=== PATIENT | female | born 1960 | race Caucasian/White ===

== ENCOUNTER 2018-03-01 07:55 | Emergency (ER) | payer BC ==
--- OUTSIDE RECORDS SUMMARY | 2018-03-01 08:05 | XMS REPORT ---
:1960 External Reference #:[id number] Author Organization [employer] Address [address] [place] [address] [place] [address] Phone [phone] Care Team Providers Name Role Phone Vandana Bynum MD Primary Care Physician Unavailable Payers Type Date Identification Numbers Payment Provider Subscriber Commercial Policy Number: [id number] [employer] Indira Latham PayID: [id number] [address] [address] [place] [address] Problems Date Description Provider Status Onset: 10/29/2011 Benign essential hypertension Cele Li M.D., FACP Active Onset: 06/17/2016 Essential hypertension Vandana Bynum M.D. Active Family History Date Family Member(s) Problem(s) Comments Father Hypertension Father 81 Mother Alive And Well Mother 81 First Daughter 18 First Brother 52 Second Brother 58 Social History Type Date Description Comments Marital Status one daughter age 15 Occupation Teacher fourth grade ETOH Use Drinks 1 Alcoholic Beverage Per Day has cut down Smoking Patient has never smoked Allergies, Adverse Reactions, Alerts Date Description Reaction Status Severity Comments 10/08/2011 NKDA active Medications Medication Date Status Form Strength Qnty SIG Indications Ordering Provider Valsartan 06/17/ Active Tablets 160mg 90tab take 1 I10 2015 s tablet by Cotton, mouth every M.D. day Valsartan 12/26/ Hx Tablets 40mg 270ta 3 by mouth I10 Vandana 2015 - bs every day Cotton, 06/17/ M.D. 2016 Valsartan 11/13/ Hx Tablets 80mg 135ta 1 and 1/ I10 Vandana 2015 - bs by mouth Fletcher, 12/26/ every day M.D. 2015 Amoxicillin/Cl 11/12/ Hx Tablets 875-125mg 20tab one tablet J01.20 Pretty avulanate 2016 - s by mouth Varn, N.P. Potassium 11/22/ twice daily 2016 for 10 days Fluticasone 11/12/ Hx Suspension 50mcg/Act 16uni 2 sprays J01.20 Pretty Propionate 2016 - ts each Varn, N.P. 11/26/ nostril 2016 daily as needed Amoxicillin 11/10/ Hx Capsules 500mg 20cap 1 by mouth 461.0 Charisse 2015 - s twice a day Carlton 04/14/ M.D. 2015 Diovan 09/22/ Hx Tablets 80mg 90tab 1 by mouth I10 Vandana 2014 - s every day Fletcher 11/13/ MXiao. 2015 Centrum Silver 11/17/ Hx Tablets Adult 50 1 po qday Cele Adult 50+ 2013 - Jen 04/14/ M.DIsidro, FACP 2015 Nabumetone 11/17/ Hx Tablets 500mg 60tab 1 by mouth Cele 2013 - s twice a day Jen 09/22/ MLuca, FACP 2015 Robitussin ac 10/15/ Hx Solution 4Oz 1-2 tsp at 465.8 Alma 2011 - bedtime as Rees, 10/24/ needed for M.D. 2011 cough. Azithromycin 10/08/ Hx Tablets 250mg 6tabs two tabs 382.9 [facility] 2011 - day one, Fletcher, 10/15/ one daily M.D. 2011 till gone Robitussin ac 10/08/ Hx 120cc 1 - 2 tsp q 465.9 [facility] 2011 - 4 hrs prn Fletcher 10/15/ cough M.D. 2011 Diovan HCT 09/12/ Hx Tablets 80-12.5mg 90tab Take One Cele 2010 - Tablet By Jen, 11/10/ Mouth Once M.D., FACP 2015 Daily Calcium + D / Hx Tablets 600-200mg 30tab 1 po bid Unknown 0000 - -Unit s 2013 Fish Oil / Hx Capsules 1200mg 1 po qd Unknown 0000 - 2013 Aspir-81 / Hx Tablets DR 81mg 100ta 1 po qd Unknown 0000 - bs 2014 Mucinex DM / Hx Tablets ER 30-600mg 1 tablet by Unknown 0000 - 12HR mouth twice 02/03/ a day as 2017 needed persistent cough Immunizations CPT Code Status Date Vaccine Lot # [id number] Given 05/13/2014 Influenza Virus Vaccine, Quadrivalent, Split, [id number] Preservative Free [id number] Given 05/12/2014 Influenza Virus Vaccine, Quadrivalent, Split, Preservative Free [id number] Given 07/30/2013 Flu Vaccine NOS [id number] Given 10/29/2011 Tdap - Tetanus/Diptheria/Acellular Pertussis 24219 Given 05/25/2009 Influenza Virus 3Yrs & Over Vital Signs Date Vital Result Comment 02/20/2018 Height 65 inches 5'5" Weight 254.00 lb Heart Rate 81 /min BP Systolic Sitting 146 mmHg BP Diastolic Sitting 85 mmHg Body Temperature 99.0 F O2 % BldC Oximetry 97 % BMI (Body Mass Index) 42.3 kg/m2 02/03/2017 Weight 254.50 lb Heart Rate 78 /min BP Systolic 132 mmHg BP Diastolic 80 mmHg Body Temperature 98.6 F O2 % BldC Oximetry 98 % 06/17/2016 Height 65 inches 5'5" Weight 244.00 lb Heart Rate 70 /min BP Systolic Sitting 150 mmHg BP Diastolic Sitting 84 mmHg O2 % BldC Oximetry 98 % BMI (Body Mass Index) 40.6 kg/m2 11/14/2015 Weight 238.00 lb Heart Rate 78 /min BP Systolic Sitting 140 mmHg BP Diastolic Sitting 80 mmHg Respiratory Rate 15 /min Body Temperature 98.6 F O2 % BldC Oximetry 98 % 11/13/2015 Weight 238.50 lb Heart Rate 79 /min BP Systolic Sitting 146 mmHg BP Diastolic Sitting 79 mmHg Body Temperature 98.8 F O2 % BldC Oximetry 98 % 04/14/2015 Height 65 inches 5'5" Weight 238.00 lb Heart Rate 78 /min BP Systolic Sitting 150 mmHg BP Diastolic Sitting 85 mmHg Body Temperature 98.9 F BMI (Body Mass Index) 39.6 kg/m2 11/10/2014 Weight 232.00 lb Heart Rate 71 /min BP Systolic Sitting 128 mmHg BP Diastolic Sitting 72 mmHg Body Temperature 97.8 F O2 % BldC Oximetry 98 % 09/22/2014 Weight 235.00 lb Heart Rate 72 /min BP Systolic Sitting 169 mmHg BP Diastolic Sitting 91 mmHg O2 % BldC Oximetry 98 % 11/17/2013 Weight 223.50 lb Heart Rate 88 /min BP Systolic 152 mmHg BP Diastolic 84 mmHg Respiratory Rate 16 /min Body Temperature 99.2 F 07/03/2012 Height 65 inches 5'5" Weight 211.00 lb Heart Rate 76 /min BP Systolic Sitting 130 mmHg BP Diastolic Sitting 90 mmHg BMI (Body Mass Index) 35.1 kg/m2 11/21/2011 Height 65 inches 5'5" Weight 202.50 lb Heart Rate 64 /min BP Systolic Sitting 158 mmHg BP's at home average 133/80 BP Diastolic Sitting 78 mmHg BP's at home average 133/80 BMI (Body Mass Index) 33.7 kg/m2 10/29/2011 Height 65 inches 5'5" Weight 207.25 lb Heart Rate 64 /min BP Systolic Sitting 136 mmHg 130/80 (repeat) BP Diastolic Sitting 80 mmHg 130/80 (repeat) BMI (Body Mass Index) 34.5 kg/m2 10/15/2011 Height 65 inches 5'5" Weight 206.00 lb Heart Rate 76 /min BP Systolic Sitting 120 mmHg BP Diastolic Sitting 82 mmHg Body Temperature 98.8 F BMI (Body Mass Index) 34.3 kg/m2 10/08/2011 Height 65 inches 5'5" Weight 203.00 lb Heart Rate 78 /min BP Systolic Sitting 138 mmHg BP Diastolic Sitting 72 mmHg Body Temperature 98.6 F BMI (Body Mass Index) 33.8 kg/m2 Results Test Date Test Result H/L Range Note Laboratory test finding 02/20/2018 Cytology <pending> Lipid Profile (Trig/Chol/HDL) 02/16/2018 Triglycerides 95 mg/dL 1 Cholesterol 237 mg/dL 2 HDL Cholesterol 69.1 mg/dL 3 LDL Cholesterol 149 mg/dL 4 Comp Metabolic Panel 02/16/2018 Sodium 141 mmol/L 135-145 Chloride 102 mmol/L 101-111 Co2 Carbon Dioxide 29 mmol/L 22-32 Glucose 111 mg/dL High 70-100 Blood Urea Nitrogen 21 mg/dL 6-24 Creatinine 0.74 mg/dL 0.51-0.95 BUN/Creatinine Ratio 28.4 High 8-20 Calcium 9.9 mg/dL 8.6-10.3 Total Protein 7.0 g/dL 6.4-8.9 Albumin 4.2 g/dL 3.2-5.2 Globulin 2.8 g/dL 2-4 Albumin/Globulin Ratio 1.5 1-3 Total Bilirubin 0.50 mg/dL 0.2-1.0 Alkaline Phosphatase 79 U/L 34-104 Alt 21 U/L 7-52 Ast 16 U/L 13-39 Egfr Non- 80.9 >60 Egfr 97.9 >60 5 Potassium 5.7 mmol/L High 3.5-5.0 Anion Gap 10 mmol/L 2-11 Laboratory test finding 02/16/2018 Hemoglobin A1c (Glyco HGB) 5.9 % High 4.0-5.6 6 Lipid Profile 01/30/2017 Triglycerides 108 mg/dL 7 (Trig/Chol/HDL) Cholesterol 219 mg/dL 8 HDL Cholesterol 63.9 mg/dL 9 LDL Cholesterol 134 mg/dL 10 Comp Metabolic Panel 01/30/2017 Sodium 137 mmol/L 133-145 Potassium 4.7 mmol/L 3.5-5.0 Chloride 103 mmol/L 101-111 Co2 Carbon Dioxide 27 mmol/L 22-32 Anion Gap 7 mmol/L 2-11 Glucose 107 mg/dL High 70-100 Blood Urea Nitrogen 17 mg/dL 6-24 Creatinine 0.71 mg/dL 0.51-0.95 BUN/Creatinine Ratio 23.9 High 8-20 Calcium 9.2 mg/dL 8.6-10.3 Total Protein 6.5 g/dL 6.4-8.9 Albumin 4.0 g/dL 3.2-5.2 Globulin 2.5 g/dL 2-4 Albumin/Globulin Ratio 1.6 1-3 Total Bilirubin 0.40 mg/dL 0.2-1.0 Alkaline Phosphatase 78 U/L 34-104 Alt 19 U/L 7-52 Ast 15 U/L 13-39 Egfr Non- 85.2 >60 Egfr 109.5 >60 11 Laboratory test finding 01/30/2017 Hemoglobin A1c (Glyco 5.8 % Less than 6.0 12 HGB) Laboratory test finding 11/07/2015 Hemoglobin A1c (Glyco 5.5 % Less than 6.0 13 HGB) TSH (Thyroid Stim Horm) 3.44 ?IU/mL 0.34-5.60 Comp Metabolic Panel 11/07/2015 Sodium 137 mmol/L 133-145 Potassium 4.0 mmol/L 3.5-5.0 Chloride 102 mmol/L 101-111 Co2 Carbon Dioxide 28 mmol/L 22-32 Anion Gap 7 mmol/L 2-11 Glucose 107 mg/dL High 70-100 Blood Urea Nitrogen 18 mg/dL 6-24 Creatinine 0.64 mg/dL 0.51-0.95 BUN/Creatinine Ratio 28.1 High 8-20 Calcium 9.3 mg/dL 8.6-10.3 Total Protein 7.0 g/dL 6.4-8.9 Albumin 4.3 g/dL 3.2-5.2 Globulin 2.7 g/dL 2-4 Albumin/Globulin Ratio 1.6 1-3 Total Bilirubin 0.40 mg/dL 0.2-1.0 Alkaline Phosphatase 92 U/L 34-104 Alt 20 U/L 7-52 Ast 16 U/L 13-39 Egfr Non- 96.3 >60 Egfr 123.9 >60 14 Lipid Profile (Trig/Chol/HDL) 11/07/2015 Triglycerides 74 mg/dL 15 Cholesterol 213 mg/dL 16 HDL Cholesterol 78.3 mg/dL 17 LDL Cholesterol 120 mg/dL 18 Laboratory test finding 04/07/2015 Glucose 96 mg/dL 70-100 19 Hemoglobin A1c (Glyco HGB) 5.9 % Less than 6.0 20 Comp Metabolic Panel 10/17/2014 Sodium 135 mmol/L 133-145 21 Potassium 3.9 mmol/L 3.5-5.0 21 Chloride 100 mmol/L Low 101-111 21 Co2 Carbon Dioxide 27 mmol/L 22-32 21 Anion Gap 8 mmol/L 2-11 21 Glucose 108 mg/dL High 70-100 21 Blood Urea Nitrogen 13 mg/dL 6-24 21 Creatinine 0.66 mg/dL 0.51-0.95 21 BUN/Creatinine Ratio 19.7 8-20 21 Calcium 8.8 mg/dL 8.6-10.3 21 Total Protein 6.7 g/dL 6.4-8.9 21 Albumin 4.3 g/dL 3.2-5.2 21 Globulin 2.4 g/dL 2-4 21 Albumin/Globulin Ratio 1.8 1-3 21 Total Bilirubin 0.60 mg/dL 0.2-1.0 21 Alkaline Phosphatase 78 U/L 34-104 21 Alt 19 U/L 7-52 21 Ast 19 U/L 13-39 21 Egfr Non- 93.3 >60 21 Egfr 120.0 >60 21, 22 Lipid Profile (Trig/Chol/HDL) 10/17/2014 Triglycerides 76 mg/dL 21, 23 Cholesterol 196 mg/dL 21, 24 HDL Cholesterol 71.0 mg/dL 21, 25 LDL Cholesterol 110 mg/dL 21, 26 Parvovirus B19 Igg & Igm 11/17/2013 Parvovirus (B19) IgG 3.27 index < 0.90 27, 28 Antibody Parvovirus (B19) IgM Antibody 8.93 index <0.90 27, 29 Parvovirus Interpretation See Comment 27, 30 Manual Differential 11/17/2013 Platelet Morphology Large 27 Neutrophil % 67 % 38-83 27 Band % 10 % High 0-8 27 Lymphocytes % 16 % Low 25-47 27 Monocytes % 3 % 0-13 27 Eosinophils % 2 % 0-6 27 Reactive Lymph % 2 % 0-6 27 RBC Morphology Normal Normal 27 Comp Metabolic Panel 11/17/2013 Sodium 138 mmol/L 133-145 27 Potassium 4.6 mmol/L 3.7-5.6 27 Chloride 103 mmol/L 101-111 27 Co2 Carbon Dioxide 27 mmol/L 22-32 27 Anion Gap 8 mmol/L 2-11 27 Glucose 99 mg/dL 70-100 27 Blood Urea Nitrogen 18 mg/dL 6-24 27 Creatinine 0.71 mg/dL 0.51-0.95 27 BUN/Creatinine Ratio 25.4 High 8-20 27 Calcium 9.1 mg/dL 8.6-10.3 27 Total Protein 6.6 g/dL 6.4-8.9 27 Albumin 4.1 g/dL 3.2-5.2 27 Globulin 2.5 g/dL 2-4 27 Albumin/Globulin Ratio 1.6 1-3 27 Total Bilirubin 0.20 mg/dL 0.2-1.0 27 Alkaline Phosphatase 83 U/L 34-104 27 Alt 21 U/L 7-52 27 Ast 16 U/L 13-39 27 Egfr Non- 86.1 >60 27 Egfr 110.7 >60 27, 31 CBC Auto Diff 11/17/2013 White Blood Count 6.5 10^3/uL 4.8-10.8 27 Red Blood Count 4.20 10^6/uL 4.0-5.4 27 Hemoglobin 13.2 g/dL 12.0-16.0 27 Hematocrit 38 % 35-47 27 Mean Corpuscular Volume 90 fL 80-97 27 Mean Corpuscular Hemoglobin 32 pg High 27- Mean Corpuscular HGB Conc 35 g/dL - Red Cell Distribution Width 13 % 10.5-15 27 Platelet Count 346 10^3/uL 150-450 27 Mean Platelet Volume 8 um3 7.4-10.4 27 Abs Neutrophils 5.0 10^3/uL 1.5-7.7 27 Abs Lymphocytes 1.1 10^3/uL 1.0-4.8 27 Abs Monocytes 0.3 10^3/uL 0-0.8 27 Abs Eosinophils 0.1 10^3/uL 0-0.6 27 Abs Basophils 0 10^3/uL 0-0.2 27 Abs Nucleated RBC 0.01 10^3/uL 27 Laboratory test finding 11/17/2013 C Reactive Protein 18.96 mg/L High < 5.00 27, 32 Erythrocyte Sed Rate 19 mm/Hr 0-30 27, 33 Cyclic Citrullinated Pept IgG <15.6 U 27, 34 Surgical Pathology 12/27/2011 Surgical Pathology <SEE 35 NOTE> Laboratory test 11/18/2011 TSH 3.05 MIU/ML 0.34-5.6 finding 0 Comp Metabolic 11/18/2011 Sodium 136 mmol/L 135-145 Panel Potassium 4.6 mmol/L 3.5-5.0 Chloride 102 mmol/L 101-111 Co2 (Carbon Dioxide) 28.0 mmol/L 22-32 Anion Gap 6.0 mmol/L 2-11 36 Glucose 107 mg/dL High 70-100 BUN 15 mg/dL 6-24 Creatinine 0.8 mg/dL 0.50-1.40 One Over Creatinine 1.25 BUN/Creatinine Ratio 18.8 8-20 Calcium 9.2 mg/dL 8.1-9.9 Total Protein 6.8 GM/DL 6.2-8.1 Albumin 4.0 GM/DL 3.6-5.4 Globulin 2.8 GM/DL 2-4 Albumin/Globulin Ratio 1.4 1-3 Bilirubin Total 0.6 mg/dL 0.4-1.5 37 Alkaline Phosphatase 63 U/L 30-110 Alt (SGPT) 19 U/L 14-54 Ast (Sgot) 16 U/L 12-42 eGFR Non- 75.6 > 60 eGFR 97.3 > 60 38 Lipid Profile (Trig/Chol/HDL) 11/18/2011 Triglyceride 95 mg/dL 40-200 Cholesterol 202 mg/dL High Less Than 200 39 High Density Lipoprotein 74 mg/dL High 40-60 40 Cholesterol/HDL Ratio 2.73 AVERAGE 1-4.44 Low Density Lipoprotein 109 mg/dL High Less Than 100 41 1 Desirable: <150 Borderline High: 150-199 High: 200-499 Very High: >500 2 Desirable: <200 Borderline High: 200-239 High: >239 3 Low: <40 Desirable: 40-60 High: >60 4 Desirable: <100 Near Optimal: 100-129 Borderline High: 130-159 High: 160-189 Very High: >189 5 Because ethnic data is not always readily available, this report includes an eGFR for both -Americans and non- Americans. The National Kidney Disease Education Program (NKDEP) does not endorse the use of the MDRD equation for patients that are not between the ages of 18 and 70, are , have extremes of body size, muscle mass, or nutritional status, or are non- or non-. According to the National Kidney Foundation, irrespective of diagnosis, the stage of the disease is based on the level of kidney function: Stage Description GFR(mL/min/1.73 m(2)) 1 Kidney damage with normal or decreased GFR 90 2 Kidney damage with mild decrease in GFR 60-89 3 Moderate decrease in GFR 30-59 4 Severe decrease in GFR 15-29 5 Kidney failure <15 (or dialysis) 6 Therapeutic target for the treatment of diabetes mellitus patients is <7% HBA1C, and in selective patients <6.0%. Please refer to [place] [employer] diabetic care guidelines for further information. 7 Desirable <150 Borderline high 150-199 High 200-499 Very High >500 8 Desirable <200 Borderline high 200-239 High >239 9 Low <40 Desirable: 40-60 High: >60 10 Desirable: <100 mg/dL Near Optimal: 100-129 mg/dL Borderline High: 130-159 mg/dL High: 160-189 mg/dL Very High: >189 mg/dL 11 Because ethnic data is not always readily available, this report includes an eGFR for both -Americans and non- Americans. The National Kidney Disease Education Program (NKDEP) does not endorse the use of the MDRD equation for patients that are not between the ages of 18 and 70, are , have extremes of body size, muscle mass, or nutritional status, or are non- or non-. According to the National Kidney Foundation, irrespective of diagnosis, the stage of the disease is based on the level of kidney function: Stage Description GFR(mL/min/1.73 m(2)) 1 Kidney damage with normal or decreased GFR 90 2 Kidney damage with mild decrease in GFR 60-89 3 Moderate decrease in GFR 30-59 4 Severe decrease in GFR 15-29 5 Kidney failure <15 (or dialysis) 12 Therapeutic target for the treatment of diabetes Mellitus patients is <7% HBA1C, and in selective patients <6.0%.Please refer to [place] [employer] Diabetic care guidelines for further information. 13 Therapeutic target for the treatment of diabetes Mellitus patients is <7% HBA1C, and in selective patients <6.0%.Please refer to [place] [employer] Diabetic care guidelines for further information. 14 Because ethnic data is not always readily available, this report includes an eGFR for both -Americans and non- Americans. The National Kidney Disease Education Program (NKDEP) does not endorse the use of the MDRD equation for patients that are not between the ages of 18 and 70, are , have extremes of body size, muscle mass, or nutritional status, or are non- or non-. According to the National Kidney Foundation, irrespective of diagnosis, the stage of the disease is based on the level of kidney function: Stage Description GFR(mL/min/1.73 m(2)) 1 Kidney damage with normal or decreased GFR 90 2 Kidney damage with mild decrease in GFR 60-89 3 Moderate decrease in GFR 30-59 4 Severe decrease in GFR 15-29 5 Kidney failure <15 (or dialysis) 15 Desirable <150 Borderline high 150-199 High 200-499 Very High >500 16 Desirable <200 Borderline high 200-239 High >239 17 Low <40 Desirable: 40-60 High: >60 18 Desirable: <100 mg/dL Near Optimal: 100-129 mg/dL Borderline High: 130-159 mg/dL High: 160-189 mg/dL Very High: >189 mg/dL 19 FASTING 12 HOUR 20 Therapeutic target for the treatment of diabetes Mellitus patients is <7% HBA1C, and in selective patients <6.0%.Please refer to [place] [employer] Diabetic care guidelines for further information. 21 FASTING 22 Because ethnic data is not always readily available, this report includes an eGFR for both -Americans and non- Americans. The National Kidney Disease Education Program (NKDEP) does not endorse the use of the MDRD equation for patients that are not between the ages of 18 and 70, are , have extremes of body size, muscle mass, or nutritional status, or are non- or non-. According to the National Kidney Foundation, irrespective of diagnosis, the stage of the disease is based on the level of kidney function: Stage Description GFR(mL/min/1.73 m(2)) 1 Kidney damage with normal or decreased GFR 90 2 Kidney damage with mild decrease in GFR 60-89 3 Moderate decrease in GFR 30-59 4 Severe decrease in GFR 15-29 5 Kidney failure <15 (or dialysis) 23 Desirable <150 Borderline high 150-199 High 200-499 Very High >500 24 Desirable <200 Borderline high 200-239 High >239 25 Low <40 Desirable: 40-60 High: >60 26 Desirable <100 Near Optimal 100-129 Borderline high 130-159 High 160-189 Very High >189 27 do today 28 Positive 29 Positive 30 RESULT: Results suggest recent infection. Test Performed by: [place] [address] Breakfast Attendant: Kyle Dhillon III, M.D. 31 Because ethnic data is not always readily available, this report includes an eGFR for both -Americans and non- Americans. The National Kidney Disease Education Program (NKDEP) does not endorse the use of the MDRD equation for patients that are not between the ages of 18 and 70, are , have extremes of body size, muscle mass, or nutritional status, or are non- or non-. According to the National Kidney Foundation, irrespective of diagnosis, the stage of the disease is based on the level of kidney function: Stage Description GFR(mL/min/1.73 m(2)) 1 Kidney damage with normal or decreased GFR 90 2 Kidney damage with mild decrease in GFR 60-89 3 Moderate decrease in GFR 30-59 4 Severe decrease in GFR 15-29 5 Kidney failure <15 (or dialysis) 32 Acute inflammation: >10.00 33 do today 34 -- REFERENCE VALUE -- <20.0 (Negative) Test Performed by: [address] [address] Breakfast Attendant: Kyle Dhillon III, M.D. 35 ---- RUN DATE: 12/31/11 [facility] NMI LIVE PAGE 1 RUN TIME: 1546 Specimen Inquiry RUN USER: INTERFACE -- Name: INDIRA LATHAM Status: REG REF Re12/27/11 Age/Sex: 51/F Unit#: [id number] Location: [address] [place] [address].O.B. : 60 -- Specimen: [id number] SOUT Spec Date:12/27/11- Ekta Dr: Derek Will MD Spec Type: SURGICAL P Received:12/30/11-1108 Copies to: Cele Li MD SPECIMEN BIOPSY CECAL POLYP HISTORY POST-OP DIAGNOSIS: Cecal polyp, early divertics CLINICAL INFORMATION: Routine screening GROSS DESCRIPTION The specimen is received in formalin labelled Indira Latham, Biopsy Cecal Polyp, and consists of a bach, soft tissue fragment measuring 0.7 x 0.3 x 0.2 cm. Submitted entirely, one cassette. DIAGNOSIS Colon, cecum, biopsy: A. Tubular adenoma. B. No high grade dysplasia or malignancy. Signed Electronically by: SHAILA BERRY MD 12/31/11 1543 -- -- DEPARTMENT OF PATHOLOGY, [address] [place] [address] [facility] Permit #[id number] Angela Braga M.D. Finisher Hand Dir chiki -- 36 Anion gap measurement may be of limited value in the presence of any alkalosis, especially in a combined acid base disorder. . 37 A metabolite of Naproxen, O-desmethylnaproxen, has been shown to interfere with the Jendrassik-Brittney method for measuring total bilirubin. Samples from patients who have taken Naproxen have shown spurious elevation in total bilirubin levels. 38 Because ethnic data is not always readily available, this report includes an eGFR for both -Americans and non- Americans. The National Kidney Disease Education Program (NKDEP) does not endorse the use of the MDRD equation for patients that are not between the ages of 18 and 70, are , have extremes of body size, muscle mass, or nutritional status, or are non- or non-. According to the National Kidney Foundation, irrespective of diagnosis, the stage of the disease is based on the level of kidney function: Stage Description GFR(mL/min/1.73 m(2)) 1 Kidney damage with normal or decreased GFR 90 2 Kidney damage with mild decrease in GFR 60-89 3 Moderate decrease in GFR 30-59 4 Severe decrease in GFR 15-29 5 Kidney failure <15 (or dialysis) 39 CHOLESTEROL INTERPRETATION: Desirable: Less than 200 MG/DL Borderline-High Risk: 200-239 MG/DL High-Risk: 240 MG/DL and over 40 HDL INTERPRETATION: Undesirable: High Risk: Less than 40 MG/DL Desirable: Low Risk: Greater than 60 MG/DL 41 LDL INTERPRETATION: Low Risk Optimal Level: LDL Less than 100 MG/DL Near or Above Optimal: LDL 100-129 MG/DL Borderline High Risk: LDL 130-159 MG/DL High Risk: LDL 160-189 MG/DL Very High Risk: LDL Greater than 189 MG/DL Procedures Date CPT Code Description Status 11/29/2015 Mammogram Completed 10/04/2014 Mammogram Completed 07/27/2012 19176 Rad Exam; Ankle Comp Completed 12/27/2011 Colonoscopy Completed 11/19/2011 Mammogram Completed 10/29/2011 39123 EKG Tracing & Interpretation Completed 08/29/2009 29304 EKG Tracing & Interpretation Completed 11/17/2008 54426 EKG Tracing & Interpretation Completed Encounters Type Date Location Provider CPT E/M Dx Office Visit 02/03/2017 3:40p [facility] Vandana Bynum [address] Elizabet Vanegas M.D. Z12.11 Office Visit 06/17/2016 2:40p [facility] Vandana Bynum, 61050 Z00.00 - Guilherme Miller I10 R73.01 R92.8 Office Visit 11/14/2015 2:40p [facility] Vandana Bynum, 17329 I10 - [place] Angela Office Visit 11/13/2015 9:00a [facility] Pretty Kiran, N.P. 13435 J01.20 - [place] Office Visit 04/14/2015 1:40p [facility] Vandana Bynum, 77015 V70.0 - [place] Angela 401.1 790.21 Office Visit 11/10/2014 11:00a [facility] Charisse Vincent M.D. 43587 461.0 - [place] Office Visit 09/22/2014 4:00p [facility] Vandana Bynum, 67877 401.1 - [place] Angela V76.12 716.87 Office Visit 11/17/2013 11:40a [facility] Cele Li M.D., 99939 716.99 - [place] FACP Office Visit 07/27/2012 8:45a [facility] Ildefonso, 93826 715.17 C.Antonio Miller Office Visit 07/03/2012 2:40p [facility] Cele Li M.D., 60190 719.47 - [place] FACP Office Visit 11/21/2011 2:20p [facility] Cele Li M.D., 61067 401.1 - [place] FACP 272.0 790.21 Office Visit 10/29/2011 2:40p [facility] - Cele Li M.D., 46161 V70.0 [place] FACP V76.10 401.1 368.9 709.8 v06.1 v72.60 Office Visit 10/15/2011 2:20p [facility] - Alma Rees M.D. 30298 465.9 [place] 465.8 Office Visit 10/08/2011 9:00a [facility] Pretty Kiran, N.P. 15513 382.9 - [place] 465.9 Office Visit 11/03/2009 3:45p DO Not Use [facility] Pretty Varn, 42467 466.0 N.P. Office Visit 08/29/2009 2:30p DO Not Use [facility] Cele Li M.D., 03867 785.1 FACP 401.1 Office Visit 08/08/2009 3:00p DO Not Use [facility] Cele Jen, 05409 401.1 M.D., FACP Office Visit 05/25/2009 3:45p DO Not Use [facility] Cele Jen, 27573 401.1 M.D., FACP V04.81 Office Visit 11/17/2008 3:30p DO Not Use [facility] Cele Jen, [id number] V70.0 M.D., FACP 401.1 Office Visit 08/30/2008 4:00p DO Not Use [facility] [place], [id number] N.P. Office Visit 08/23/2008 2:30p DO Not Use [facility], 13072 466.0 N.P. 486 Office Visit 07/21/2008 2:45p DO Not Use [employer] Cele Jen, [id number] 401.1 M.D., FACP Plan of Care Future Appointment(s):04/28/2018 2:40 pm - Vandana Bynum M.D. at [facility] - Kirqdfkzp21/06/2018 - Vandana Bynum M.D.Z00.00 Encntr for general adult medical exam w/o abnormal findingsComments:~B_VACCINES:~b_Flu shot every year in the fall.Tetanus: last one done in 2011. Booster every 10 years, earlier if major injuryShingles vaccine: There is a new shingles vaccine - Shingrix. 90% effective. This is available at pharmacies. Series of 2 shots, given 2-6 months apart. Most people get a flu-like reaction. Cost is about $400 - call your insurance about coverage. ~B_SCREENING:~b_Colonoscopy: last one done in 2011, you had pre-cancerous polyps and were due for follow up in 2017Mammogram: last done in November 2015Pap smear: last one on file is from 2011. Current guidelines for low risk women recommend pap every 5 years if pap is normal and HPV is negativeDiabetes screening: annual blood sugar test - currently in borderline diabetes ecatsT84 Essential (primary) hypertensionComments:When you are off Sudafed, check BP at [employer] Call me with numbersFollow up:2 [id number] Encounter for screening for malignant neoplasm of xuulowG65.31 Encntr screen mammogram for malignant neoplasm of breastNew Xrays:MG Screening SobvvpzypF90.11 Encounter for screening for malignant neoplasm of colonReferral:Noah Javier MD, LezyarhkbyvxhifkZ32.41 Body mass index (BMI) 40.0-44.9, adultComments:Summer plan: [employer] in AM at about 9 for about an hour.Every other dayStarting next Friday
[2018-03-01 08:12] VITALS: BP 152/97
--- NOTE | 2018-03-01 08:15 | UC ---
Respiratory Complaint HPI - HPI Summary HPI Summary: This is Tanika heredia, documenting for attending Kane Joyce M.D. Pt is a 57 y/o F who presents to [facility] c/o ongoing respiratory illness. Pt reports that for about 2 weeks she has been experiencing cough and sore throat. Throat pain is worse with swallowing. She has been taking cold pills which has slightly improved the cough, though otherwise her symptoms are consistent. Additionally c/o ear pain, yellow/green nasal discharge and eye discharge stating my eyes are almost glued shut in the morning when she wakes up. Reports that her and daughter have had the same symptoms, with her daughter improving and her seeing their PCP tomorrow. - History of Current Complaint Chief Complaint: UCRespiratory Stated Complaint: COUGH,SORE THROAT Time Seen by Provider: 03/01/18 08:03 Hx Obtained From: Patient Onset/Duration: Gradual Onset, Lasting Weeks - 2 weeks, Still Present Severity Currently: None Pain Intensity: 0 Pain Scale Used: 0-10 Numeric Aggravating Factors: Other - Sore throat - swallowing Alleviating Factors: OTC Meds - Allergies/Home Medications Allergies/Adverse Reactions: Allergies Allergy/AdvReac Type Severity Reaction Status Date / Time No Known Allergies Allergy Verified 03/01/18 08:12 Home Medications: Home Medications Ibuprofen/Pseudoephedrine HCl [Advil Cold & Sinus] 1 tab PO 03/01/18 [History] Valsartan TAB* [Diovan TAB*] 160 mg PO DAILY 03/01/18 [History Confirmed ] PMH/Surg Hx/FS Hx/Imm Hx - Additional Past Medical History Additional PMH: NEGATIVE PMHx: DM Cardiovascular History: Hypertension - Surgical History Surgical History: None - Family History Known Family History: Positive: Hypertension - Social History Alcohol Use: None Substance Use Type: None Smoking Status (MU): Never Smoked Tobacco Review of Systems Constitutional: Negative Skin: Negative Eyes: Drainage ENT: Sore Throat, Ear Ache, Nasal Discharge Respiratory: Cough Cardiovascular: Negative Gastrointestinal: Negative Genitourinary: Negative Motor: Negative Neurovascular: Negative Musculoskeletal: Negative Neurological: Negative Psychological: Negative All Other Systems Reviewed And Are Negative: Yes Physical Exam - Summary Physical Exam Summary: General: well-appearing, no pain distress Skin: warm, color reflects adequate perfusion, dry Head: normal Eyes: EOMI, REGINALDO, right scleral injection ENT: mild posterior pharynx erythema, positive rhinorrhea Neck: supple, nontender Respiratory: CTA, breath sounds present Cardiovascular: RRR Abdomen: soft, nontender Bowel: present Musculoskeletal: normal, strength/ROM intact Neurological: sensory/motor intact, A&O x3 Psychological: affect/mood appropriate Triage Information Reviewed: Yes Vital Signs: Initial Vital Signs Temp 96.9 F 03/01/18 08:05 Pulse 72 03/01/18 08:05 Resp 18 03/01/18 08:05 BP 152/97 03/01/18 08:05 Pulse Ox 97 03/01/18 08:05 Vital Signs Reviewed: Yes UC Diagnostic Evaluation - Laboratory O2 Sat by Pulse Oximetry: 97 Respiratory Course/Dx - Course Course Of Treatment: Medications reviewed. Allergies noted. F/U PMD; RECHECK SOONER IF WORSE. - Differential Dx/Diagnosis Provider Diagnoses: SINUSITIS. CONJUNCTIVITIS Discharge - Sign-Out/Discharge Documenting (check all that apply): Patient Departure - Discharge - Discharge Plan Condition: Stable Disposition: HOME Prescriptions: Amoxicillin/Clavulanate TAB* [Augmentin TAB 875*] 875 mg PO BID #20 tab Tobramycin 0.3% OPHTH.LORIE* 1 drop BOTH EYES Q4H #1 btl Patient Education Materials: Sinusitis (ED), Conjunctivitis (ED) Referrals: Vandana Bynum MD [Primary Care Provider] - Additional Instructions: FOLLOW UP WITH YOUR DOCTOR IF NOT COMPLETELY IMPROVED. GET RECHECKED FOR ANY WORSENING OF YOUR CONDITION OR QUESTIONS OR CONCERNS. - Billing Disposition and Condition Condition: STABLE Disposition: Home
== END 2018-03-01 08:16 | disposition home or self-care (01) ==
LOC: UCEAST 07:55
DX: I10 Essential (primary) hypertension (principal); J32.9 Chronic sinusitis, unspecified; H10.9 Unspecified conjunctivitis
CPT/HCPCS: 99212; G0463